=== PATIENT | female | born 1965 | race Caucasian/White ===

== ENCOUNTER 2016-08-13 15:20 | Emergency (ER) | payer OTHER ==
[~2016-08-13 15:20] MED LIST: ASPIRIN CHEWABL81 MG PO; CEFDINIR300 MG PO; CEFUROXIME500 MG PO; CLARITIN-D 241 EACH PO; COMPOUND; ELAVIL10 MG PO; FIORICET1 EACH PO; LACTINEX1 EACH PO; NORCO 5-325 TA1 EACH PO; PREDNISONE 10MG10 MG PO; VENTOLIN HFA IN18 GM INH; XANAX1 MG PO; ZITHROMAX250 MG PO; ZOLOFT100 MG PO; ZOVIRAX200 MG PO; ZOVIRAX5 GM TOP
[2016-08-13 17:08] LABS: BASOPHIL 0.2 % (0-2); EOSINOPHIL 1.3 % (0-5); HCT 46.3 % (37.0-47.0); LYMPHOCYTE 28.1 % (15-48); MCH 31.6 pg (25.0-31.0); MCHC 34.6 g/dL (32.0-36.0); MCV 91.5 fL (78.0-100.0); MONOCYTE 6.9 % (0-12); MPV 10.8 fL (6.0-9.5); NEUTROPHIL 63.5 % (41-80); PLT 232 K/uL (150-400); RBC 5.06 M/uL (4.20-5.40); RDW 14.3 % (11.5-14.0); WBC 9.4 K/uL (4.0-10.5)
[2016-08-13 17:13] LABS: INR 0.89 (0.9-1.2); PROTHROMBIN TIME 11.7 SECONDS (11.7-14.0); PTT 24.7 SECONDS (23.2-31.4)
[2016-08-13 17:21] LABS: ALBUMIN 4.2 g/dL (3.5-5.0); BILIRUBIN - TOTAL 0.3 mg/dL (0.1-1.0); CREATININE 0.6 mg/dL (0.5-1.0); GLOBULIN (CALCULATION) 3.5 g/dL (2.2-4.2); MAGNESIUM 2.03 mg/dL (1.40-2.10); POTASSIUM 4.2 mmol/L (3.5-5.1); TOTAL PROTEIN 7.7 g/dL (6.4-8.3)
[2016-08-13 17:23] LABS: CKMB 1.61 ng/mL (0.97-4.94); PRO-BNP 67 pg/mL (0-125); TROPONIN T < 0.010 ng/mL
[2016-08-13 17:24] LABS: MYOGLOBIN < 21 ng/mL (26-65)
== END 2016-08-13 21:00 | disposition home or self-care (01) ==
LOC: FER 15:20
PROVIDERS: Emergency Medicine
DX: I10 Essential (primary) hypertension (principal); F17.210 Nicotine dependence, cigarettes, uncomplicated; Z88.5 Allergy status to narcotic agent; Z79.899 Other long term (current) drug therapy
CPT/HCPCS: 36415; 71010; 80053; 82550; 82553; 83735; 83874; 83880; 84484; 85025; 85610; 85730; 93005; J1170; J1885; J2405

== ENCOUNTER → 2021-05-01 | Day surgery (SDC) | payer MEDICARE, OTHER ==
[~2021-05-01] VITALS: Ht 165 cm; Wt 54.0 kg
[~2021-05-01] MED LIST changes: +ALL DAY ALLERGY10 M2 PO; +BACLOFEN10 MG PO; +BENTYL10 MG PO; +CYMBALTA 30MG C30 MG PO; +DULERA 200 MCG8.8 GM INH; +DUONEB 2.5-0.5M1 AMP INH; +FLONASE ALLER15.8 ML; +HYDROCODONE-APA1 TAB PO; +LEVAQUIN750 MG PO; +MEDROL 4MG DOSEP4 MG PO; +MELOXICAM15 MG PO; +NEURONTIN100 MG PO; +NEURONTIN300 MG PO; +OMEPRAZOLE40 MG PO; +ONDANSETRON ODT4 MG SL; +PRINIVIL20 MG PO; +SINGULAIR10 MG PO; +SPIRIVA RESPIMAT4 G1 INH; +TOPAMAX100 MG PO; +TOPAMAX50 MG PO; +TOPIRAMATE100 MG PO; +VENTOLIN (2.5 MG/3 M INH; +VENTOLIN (2.5 MG/3 M NEB; +VITAMIN D350 MC3 PO; +XANAX0.5 MG PO; +ZANTAC150 MG PO; +ZINC50 M1 PO; +[UNRECOGNIZED DRUG - OTHER]; +spiriva respimat
== END | disposition home or self-care (01) ==
LOC: FAS 07:46
DX: K63.5 Polyp of colon (principal); K29.70 Gastritis, unspecified, without bleeding; K44.9 Diaphragmatic hernia without obstruction or gangrene; K57.30 Diverticulosis of large intestine without perforation or abscess without bleeding; K64.9 Unspecified hemorrhoids; R97.0 Elevated carcinoembryonic antigen [CEA]; I85.00 Esophageal varices without bleeding; I10 Essential (primary) hypertension; G43.709 Chronic migraine without aura, not intractable, without status migrainosus; J44.9 Chronic obstructive pulmonary disease, unspecified; F17.210 Nicotine dependence, cigarettes, uncomplicated; K21.9 Gastro-esophageal reflux disease without esophagitis; E55.9 Vitamin D deficiency, unspecified; Z88.5 Allergy status to narcotic agent; Z90.49 Acquired absence of other specified parts of digestive tract; Z80.0 Family history of malignant neoplasm of digestive organs; K27.9 Peptic ulcer, site unspecified, unspecified as acute or chronic, without hemorrhage or perforation
CPT/HCPCS: J2250; J7120